=== PATIENT | male | born 1955 | race American Indian/Alaskan Native ===

== ENCOUNTER 2018-04-21 22:25 | Emergency (ER) | payer OTHER ==
[2018-04-21 22:55] VITALS: TEMP 98
[2018-04-21 23:50] LABS: BASO # 0.1 K/uL (0.0-0.2); EOS # 0.1 K/uL (0.0-0.7); EOS % 1.9 % (0.0-4.0); HEMOGLOBIN 12.6 g/dL (12.0-18.0); LYMPH # 2.1 K/uL (1.0-4.3); LYMPH % 35.3 % (20.0-40.0); MEAN CELL VOLUME 92.4 fL (80.0-94.0); MEAN CORPUSCULAR HEMOGLOBIN 32.5 pg (27.0-31.0); MEAN CORPUSCULAR HGB CONC 35.2 g/dL (33.0-37.0); MEAN PLATELET VOLUME 7.6 fL (7.2-11.7); MONO # 0.5 K/uL (0.0-0.8); MONO % 8.9 % (0.0-10.0); NEUT # 3.1 K/uL (1.8-7.0); NEUT % 52.9 % (50.0-75.0); NRBC % 0.1 % (0.0-2.0); RBC 3.88 Mil/uL (4.40-5.90); RED CELL DISTRIBUTION WIDTH 13.4 % (11.5-14.5); WHITE BLOOD COUNT 5.9 K/uL (4.8-10.8)
--- NOTE | 2018-04-21 23:54 | C.PDOC ---
History Of Present Illness 63 year old male presents to the ER with a complaint of intermittent bilateral chest pain for the past few months. Patient states the pain worsens with movement and also notes he has had an intermittent cough for the past few months. Denies fever or cardiac Hx. Time Seen by Provider: 04/21/18 23:33 Chief Complaint (Nursing): Chest Pain History Per: Patient History/Exam Limitations: no limitations Onset/Duration Of Symptoms: Days Current Symptoms Are (Timing): Still Present Associated Symptoms: denies: Nausea, Dyspnea, Diaphoresis, Syncope Modifying Factors: None Exacerbating Factors: None Alleviating Factors: None Recent travel outside of the [place]: No Past Medical History Reviewed: Historical Data, Nursing Documentation, Vital Signs Vital Signs: Last Vital Signs Temp 98 F 04/21/18 22:51 Pulse 85 04/22/18 00:33 Resp 17 04/22/18 00:33 BP 124/72 04/22/18 00:33 Pulse Ox 98 04/22/18 00:33 Family History: States: Unknown Family Hx - Social History Hx Alcohol Use: No Hx Substance Use: No Review Of Systems Constitutional: Negative for: Fever, Chills Cardiovascular: Negative for: Palpitations Respiratory: Positive for: Cough Gastrointestinal: Negative for: Nausea, Vomiting Musculoskeletal: Positive for: Other (Bilateral chest wall pain) Physical Exam - Physical Exam Appears: Non-toxic Skin: Normal Color, Warm, Dry Head: Atraumatic, Normacephalic Eye(s): bilateral: Normal Inspection Oral Mucosa: Moist Neck: Normal, Supple Chest: Symmetrical, No Tenderness Cardiovascular: Rhythm Regular Respiratory: Normal Breath Sounds, No Rales, No Rhonchi, No Wheezing Gastrointestinal/Abdominal: Soft, No Tenderness Neurological/Psych: Oriented x3, Normal Speech ED Course And Treatment - Laboratory Results Result Diagrams: 04/21/18 23:47 04/21/18 23:47 O2 Sat by Pulse Oximetry: 99 (Room air) Pulse Ox Interpretation: Normal Medical Decision Making Medical Decision Making: atypcial cp r/o acs Plan: * EKG * Blood work * CXR * Aspirin * pt reassesed pain resolved. atypical pain x months. ekg neg trop neg. cxr neg as read by me. stable for dc Disposition - Disposition Referrals: [facility] [Outside] [facility] at [facility] [Outside] Curry Maldonado MD [Staff Provider] - Disposition: HOME/ ROUTINE Disposition Time: 07:00 Condition: STABLE Additional Instructions: please follow up with your doctor. return to er with worsening symptoms or concerns. Instructions: Chest Pain Forms: [employer] (Palestinian) - Clinical Impression Clinical Impression: Chest pain - Scribe Statement The provider has reviewed the documentation as recorded by the Scribe Olaf Bruce All medical record entries made by the Scribe were at my direction and personally dictated by me. I have reviewed the chart and agree that the record accurately reflects my personal performance of the history, physical exam, medical decision making, and the department course for this patient. I have also personally directed, reviewed, and agree with the discharge instructions and disposition.
[2018-04-21 23:58] LABS: INR 1.1; PROTHROMBIN TIME 11.7 SECONDS (9.7-12.2)
[2018-04-22 00:13] LABS: CALCIUM 9.2 mg/dl (8.6-10.4)
[2018-04-22 00:38] VITALS: BP 124/72; PULSE 85; RESP 17
[2018-04-22 00:38] LABS: ALB/GLOB RATIO 1.2 (1.0-2.1); ALBUMIN 4.3 g/dL (3.5-5.0); ALT/SGPT 38 U/L (21-72); BLOOD UREA NITROGEN 16 mg/dL (9-20); GFR AFRICAN-AMERICAN > 60; GFR NON-AFRICAN AMERICAN > 60
[2018-04-22 00:53] LABS: AST/SGOT 26 U/L (17-59)
--- NOTE | 2018-04-22 09:03 | RAD ---
HISTORY: chest pain COMPARISON: No prior. TECHNIQUE: Chest PA and lateral FINDINGS: LUNGS: No active pulmonary disease. PLEURA: No significant pleural effusion identified. No pneumothorax apparent. CARDIOVASCULAR: Normal. OSSEOUS STRUCTURES: No significant abnormalities. VISUALIZED UPPER ABDOMEN: Normal. OTHER FINDINGS: None. IMPRESSION: No active disease.
--- NOTE | 2018-04-24 05:33 | CARD ---
APPROVED REPORT EKG Measurement Heart [id number] <Conclusion> Sinus bradycardia with 1st degree AV block Septal infarct, age undetermined Abnormal ECG
[2018-04-24 19:15] VITALS: O2SAT 99
== END 2018-04-22 01:51 | disposition home or self-care (01) ==
LOC: C.ER 22:25
DX: R07.9 Chest pain, unspecified (principal)

== ENCOUNTER 2019-02-05 19:26 | Emergency (ER) | payer OTHER ==
[2019-02-05 20:54] LABS: BASO % 0.6 % (0.0-2.0); EOS # 0.2 K/uL (0.0-0.7); EOS % 2.4 % (0.0-4.0); HEMOGLOBIN 12.9 g/dL (12.0-18.0); LYMPH # 1.5 K/uL (1.0-4.3); LYMPH % 23.1 % (20.0-40.0); MEAN CELL VOLUME 93.5 fL (80.0-94.0); MEAN CORPUSCULAR HEMOGLOBIN 32.2 pg (27.0-31.0); MEAN CORPUSCULAR HGB CONC 34.4 g/dL (33.0-37.0); MEAN PLATELET VOLUME 7.2 fL (7.2-11.7); MONO # 0.4 K/uL (0.0-0.8); MONO % 7.1 % (0.0-10.0); NEUT # 4.2 K/uL (1.8-7.0); NEUT % 66.8 % (50.0-75.0); RED CELL DISTRIBUTION WIDTH 13.1 % (11.5-14.5); WHITE BLOOD COUNT 6.3 K/uL (4.8-10.8)
[2019-02-05 21:16] LABS: ALB/GLOB RATIO 1.4 (1.0-2.1); ALBUMIN 4.2 g/dL (3.5-5.0); ALT/SGPT 26 U/L (21-72); AST/SGOT 24 U/L (17-59); BLOOD UREA NITROGEN 15 mg/dL (9-20); CALCIUM 9.2 mg/dl (8.6-10.4); GFR NON-AFRICAN AMERICAN > 60
--- NOTE | 2019-02-05 21:25 | RAD ---
Chest x-ray single frontal view HISTORY: Shortness of breath. Comparison: None available. FINDINGS: No focal infiltrate or effusion. Heart size within normal limits. Rounded radiopaque density projecting over the upper mediastinum which was noted on the prior study. This may be related to ectatic vasculature however additional etiologies can't be excluded. Clinical correlation. Correlation with chest CT may be helpful if clinically indicated. Degenerative changes in the spine. Impression: No focal infiltrate or effusion. Rounded radiopaque density projecting over the upper mediastinum which was noted on the prior study. This may be related to ectatic vasculature however additional etiologies can't be excluded. Clinical correlation. Correlation with chest CT may be helpful if clinically indicated.
[2019-02-05 21:28] LABS: B-TYPE NATRIURETIC PEPTIDE 16.3 pg/mL (0-900)
[2019-02-05 22:49] VITALS: BP 134/68; PULSE 55; RESP 18; TEMP 98.2; O2SAT 95
--- NOTE | 2019-02-05 22:50 | C.PDOC ---
History Of Present Illness 63 year old male presents to the ED c/o dull intermittent chest pain. Patient reports his pain worsens with deep inspiration and is radiating towards his back and left arm. Patient denies fever, chills, headache, visual changes, SOB, palpitations, rash, injury, fall, trauma. Time Seen by Provider: 02/05/19 20:22 Chief Complaint (Nursing): Chest Pain History Per: Patient History/Exam Limitations: no limitations Onset/Duration Of Symptoms: Days Current Symptoms Are (Timing): Still Present Quality: Dull, Pressure Exacerbating Factors: Deep Breathing Recent travel outside of the [place]: No Additional History Per: Patient Past Medical History Reviewed: Historical Data, Nursing Documentation, Vital Signs Vital Signs: Last Vital Signs Temp 98.2 F 02/05/19 22:16 Pulse 55 L 02/05/19 22:16 Resp 18 02/05/19 22:16 BP 134/68 02/05/19 22:16 Pulse Ox 95 02/05/19 22:16 - Medical History PMH: No Chronic Diseases Surgical History: No Surg Hx Family History: States: Unknown Family Hx - Social History Hx Alcohol Use: No Hx Substance Use: No Review Of Systems Constitutional: Negative for: Fever, Chills Eyes: Negative for: Vision Change Cardiovascular: Positive for: Chest Pain. Negative for: Palpitations Respiratory: Negative for: Cough, Shortness of Breath Gastrointestinal: Negative for: Nausea, Vomiting, Abdominal Pain Skin: Negative for: Rash Neurological: Negative for: Weakness, Numbness, Headache Physical Exam - Physical Exam Appears: Non-toxic, No Acute Distress Skin: Normal Color, Warm, Dry Head: Atraumatic, Normacephalic Eye(s): bilateral: Normal Inspection Neck: Normal ROM, Supple Chest: Symmetrical Cardiovascular: Rhythm Regular Respiratory: Normal Breath Sounds, No Rales, No Rhonchi, No Wheezing Gastrointestinal/Abdominal: Soft, No Tenderness, No Guarding, No Rebound Extremity: Normal ROM, No Tenderness, No Swelling Neurological/Psych: Oriented x3, Normal Speech, Normal Cognition Gait: Steady ED Course And Treatment - Laboratory Results Result Diagrams: 02/05/19 20:51 02/05/19 20:51 Lab Results: Troponin I < 0.0120 ng/mL (0.00-0.120) 02/05/19 20:51 NT-Pro-B Natriuret Pep 16.3 pg/mL (0-900) 02/05/19 20:51 Total Bilirubin 0.3 mg/dL (0.2-1.3) 02/05/19 20:51 AST 24 U/L (17-59) 02/05/19 20:51 ALT 26 U/L (21-72) 02/05/19 20:51 Alkaline Phosphatase 62 U/L (38-126) 02/05/19 20:51 Total Protein 7.2 g/dL (6.3-8.3) 02/05/19 20:51 Albumin 4.2 g/dL (3.5-5.0) 02/05/19 20:51 Globulin 3.0 gm/dL (2.2-3.9) 02/05/19 20:51 Albumin/Globulin Ratio 1.4 (1.0-2.1) 02/05/19 20:51 ECG: Interpreted By Me, Viewed By Me ECG Rhythm: Sinus Rhythm Interpretation Of ECG: Normal axis, no ST/T wave changes Rate From EC (BPM) O2 Sat by Pulse Oximetry: 95 (ON RA) Pulse Ox Interpretation: Normal Against Medical Advice - AMA Patient Left Against Medical Advice: The patient declines admission to the hospital and wishes to leave the Emergency Department. This action is against my medical advice. This decision was made with informed refusal. The patient was told that admission to the hospital is necessary. Explanation of the reasons why were discussed. The risks of leaving were explained to the patient and include, but are not l imited to, worsening of known or currently unknown conditions, permanent disability and from undiagnosed or untreated conditions. The patient has the capacity to make this informed decision and understands my explanation of the current medical problem and risks of leaving. The patient voluntarily accepts these risks and signed an AMA form documenting our conversation. The patient was given the opportunity to ask questions and reconsider. The patient was encouraged to return to the Emergency Department at any time for further care. Medical Decision Making Medical Decision Making: Assessment: Chest pain Plan: * EKG * CXR * Aspirin 81 mg PO * Toradol 30 mg IVP Patient wished to sing AMA and leaved the ER, understands the risks. Disposition - Disposition Disposition: AGAINST MEDICAL ADVICE Disposition Time: 22:50 Condition: STABLE Forms: [employer] ([place]) - Clinical Impression Clinical Impression: Chest discomfort - Scribe Statement The provider has reviewed the documentation as recorded by the Scribe Parish Nguyen All medical record entries made by the Scribe were at my direction and personally dictated by me. I have reviewed the chart and agree that the record accurately reflects my personal performance of the history, physical exam, medical decision making, and the department course for this patient. I have also personally directed, reviewed, and agree with the discharge instructions and disposition.
== END 2019-02-05 23:17 | disposition left against medical advice (07) ==
LOC: C.ER 19:26
DX: R07.89 Other chest pain (principal)
CPT/HCPCS: 71045; 80053; 83880; 84484; 85025; 96374; 99284; J1885